=== PATIENT | male | born 1975 | race African-American/Black ===

== ENCOUNTER 2018-01-04 16:19 | Inpatient (IN) | payer OTHER ==
[2018-01-04 17:58] VITALS: BMI 25.1
--- NOTE | 2018-01-04 21:07 | HP ---
COWS - Scale Resting Pulse: 0= [place] 80 or Below Sweatin= Chills/Flushing Restless Observation: 1= Difficult to Sit Still Pupil Size: 1= Pupils >than Normal Bone or Joint Aches: 1= Mild Discomfort Runny Nose/ Eye Tearin= Runny Nose/Eyes GI Upset > 30mins: 2= Nausea/Diarrhea Tremor Observation: 2= Slight Tremor Visible Yawning Observation: 1= 1-2x During Session Anxiety or Irritability: 2=Irritable/Anxious Goose Flesh Skin: 0=Smooth Skin COWS Score: 13 CIWA Score - CIWA Score Nausea/Vomitin Muscle Tremors: 2 Anxiety: 3 Agitation: 2 Paroxysmal Sweats: 2 Orientation: 0-Oriented Tacttile Disturbances: 1-Very Mild Itch/Numbness Auditory Disturbances: 1-Very Mild Visual Disturbances: 1-Very Mild Sensitivity Headache: 1-Very Mild CIWA-Ar Total Score: 15 Admission ROS BHS - HPI Chief Complaint: " I don't feel well" alcohol and opioid withdrawal sx Allergies/Adverse Reactions: Allergies Allergy/AdvReac Type Severity Reaction Status Date / Time No Known Allergies Allergy Verified 01/04/18 20:20 History of Present Illness: 42 yo male with hx of heroin ( nasal), alcohol and nicotine dependence is here seeking detox. Last detox [facility] 11/30/15 -12/05/15. Longest period of sobriety 2 years, reports relapsed nine months. PMHX: GERD, depression. Denies suicidal / homicidal ideation. Denies hx of overdose, reports hx of blackouts with last episode three months ago. Reports no legal troubles at this time. Exam Limitations: No Limitations - Ebola screening Have you traveled outside of the country in the last 21 days: No (N) Have you had contact with anyone from an Ebola affected area: No Have you been sick,other than usual withdrawal symptoms: No Do you have a fever: No - Review of Systems Constitutional: Chills, Loss of Appetite, Changes in sleep, Weakness (no enegery ), Unintentional Wgt. Loss (40 lbs in the past three months) EENT: reports: Other (runny nose) Respiratory: reports: Other (SOB when anxious) GI: reports: Diarrhea, Nausea, Poor Appetite, Poor Fluid Intake, Abdominal cramping : reports: No Symptoms Reported Musculoskeletal: reports: Back Pain, Joint Pain Integumentary: reports: No Symptoms Reported Neuro: reports: Tingling (right arm), Weakness Endocrine: reports: Increased Thirst Hematology: reports: No Symptoms Reported, Bleeding Diathesis Psychiatric: reports: Orientated x3, Anxious Other Systems: Reviewed and Negative Patient History - Patient Medical History Hx Anemia: No Hx Asthma: No Hx Chronic Obstructive Pulmonary Disease (COPD): No Hx Cancer: No Hx Cardiac Disorders: No Hx Congestive Heart Failure: No Hx Hypertension: No Hx Hypercholesterolemia: No Hx Pacemaker: No HX Cerebrovascular Accident: No Hx Seizures: No Hx Dementia: No Hx Diabetes: No Hx Gastrointestinal Disorders: Yes (GERD) Hx Liver Disease: No Hx Genitourinary Disorders: No Hx Sexually Transmitted Disorders: No Hx Renal Disease (ESRD): No Hx Thyroid Disease: No Hx Human Immunodeficiency Virus (HIV): No (2015 negative) Hx Hepatitis C: No (2016 negative) Hx Depression: Yes (no med) Hx Suicide Attempt: No Hx Bipolar Disorder: No Hx Schizophrenia: No - Patient Surgical History Past Surgical History: No Hx Neurologic Surgery: No Hx Cataract Extraction: No Hx Cardiac Surgery: No Hx Lung Surgery: No Hx Breast Surgery: No Hx Breast Biopsy: No Hx Abdominal Surgery: No Hx Appendectomy: No Hx Cholecystectomy: No Hx Genitourinary Surgery: No Hx Section: No Hx Orthopedic Surgery: No Anesthesia Reaction: No - PPD History Previous Implant?: Yes Documented Results: Negative w/proof Date: 07/19/15 Results: 0 mm PPD to be Administered?: Yes - Smoking Cessation Smoking history: Current every day smoker Have you smoked in the past 12 months: Yes Aproximately how many cigarettes per day: 8 Hx Chewing Tobacco Use: No Initiated information on smoking cessation: Yes 'Breaking Loose' booklet given: 01/04/18 - Substance & Tx. History Hx Alcohol Use: Yes Hx Substance Use: Yes Substance Use Type: Alcohol, Heroin Hx Substance Use Treatment: Yes ([facility] 2015) - Substances Abused Alcohol Route: Oral Frequency: Daily Amount used: beer- 16 x (24oz) Age of first use: 12 Date of Last Use: 01/04/18 Heroin Route: Inhalation Frequency: Daily Amount used: 10 bags Age of first use: 36 Date of Last Use: 01/03/18 Family Disease History - Family Disease History Family Disease History: Other: Sister (hx cocaine and currently clean ) Admission Physical Exam [facility] - Vital Signs Vital Signs: Vital Signs - 24 hr 01/04/18 17:56 Temperature 97 F L Pulse Rate 68 Respiratory 18 Rate Blood Pressure 140/80 - Physical General Appearance: Yes: Disheveled, Mild Distress, Anxious HEENTM: Yes: EOMI, Hearing grossly Normal, Normal ENT Inspection, Normocephalic , Normal Voice, SARAHY, Pharynx Normal, Tm's normal Respiratory: Yes: Chest Non-Tender, Lungs Clear, Normal Breath Sounds, No Respiratory Distress, No Accessory Muscle Use Neck: Yes: Within Normal Limits Breast: Yes: Breast Exam Deferred Cardiology: Yes: Regular Rhythm, Regular Rate Abdominal: Yes: Normal Bowel Sounds, Non Tender, Flat, Soft Genitourinary: Yes: Within Normal Limits Back: Yes: Normal Inspection Musculoskeletal: Yes: full range of Motion, Gait Steady, Pelvis Stable Extremities: Yes: Normal Capillary Refill, Normal Inspection, Normal Range of Motion, Non-Tender Neurological: Yes: reliability manager II-XII NML intact, Fully Oriented, Alert, Motor Strength 5/5, Depressed Affect Integumentary: Yes: Normal Color, Warm, Clammy Lymphatic: Yes: Within Normal Limits - Diagnostic (1) Weight loss Current Visit: Yes Status: Acute (2) Alcohol dependence with uncomplicated withdrawal Current Visit: Yes Status: Chronic (3) GERD without esophagitis Current Visit: Yes Status: Chronic (4) Nicotine dependence Current Visit: Yes Status: Chronic Qualifiers: Nicotine product type: cigarettes Substance use status: uncomplicated Qualified Code(s): F17.210 - Nicotine dependence, cigarettes, uncomplicated (5) Opioid dependence with withdrawal Current Visit: Yes Status: Chronic Cleared for Admission [facility] - Detox or Rehab [facility] Level of Care: Medically Managed Detox Regimen/Protocol: Methadone/Librium [facility] Breath Alcohol Content Breath Alcohol Content: 0.048 Urine Drug Screen - Results Drug Screen Negative: No Urine Drug Screen Results: OPI-Opiates, FEN-Fentanyl
[2018-01-04] MEDS ORDERED: MAGNESIUM HYDROX 2400MG/30ML ORAL SUSPENSION 30 ML CUP PO PRN (21:14)
[2018-01-04] MEDS ORDERED: MENTHOL/PHENOL 1 EACH UD MM PRN (21:14)
[2018-01-04] MEDS ORDERED: NICOTINE POLACRILEX 2 MG GUM BUC PRN (21:14)
[2018-01-04] MEDS ORDERED: P-EPHED 60MG/TRIPROLIDI 2.5MG TABLET PO PRN (21:14)
[2018-01-04] MEDS ORDERED: IBUPROFEN 400 MG TABLET (FP) PO PRN (21:14)
[2018-01-04] MEDS ORDERED: MAGNESIUM CITRATE 300 ML BOTTLE PO PRN (21:14)
[2018-01-04] MEDS ORDERED: guaiFENesin/D-METHORPHAN HB 10 ML UNIT-DOSE CUPS PO PRN (21:14)
[2018-01-04] MEDS ORDERED: ACETAMINOPHEN 325 MG TABLET (FP) PO PRN (21:14)
[2018-01-04] MEDS ORDERED: MAG HYDROX/AL HYDROX/SIMETH 30 ML UNIT-DOSE CUP PO PRN (21:14)
[2018-01-04] MEDS ORDERED: LOPERAMIDE HCL 2 MG CAPSULE PO PRN (21:14)
[2018-01-04] MEDS ORDERED: METHADONE HCL 10 MG TABLET (FOR DETOX USE ONLY) PO ONE ×2 (21:14→23:00)
[2018-01-04] MEDS ORDERED: chlordiazePOXIDE HCL 25 MG CAPSULE PO PRN (21:14)
[2018-01-04] MEDS: chlordiazePOXIDE HCL 25 MG CAPSULE PO SCH (22:14)
[2018-01-04] MEDS: THIAMINE HCL 100 MG TABLET (FP) PO SCH (22:15)
[2018-01-05] MEDS: chlordiazePOXIDE HCL 25 MG CAPSULE PO SCH ×4 (05:58→22:21)
[2018-01-05] MEDS ORDERED: METHADONE HCL 10 MG TABLET (FOR DETOX USE ONLY) PO SCH (10:00)
[2018-01-05] MEDS: NICOTINE 14 MG/24 HOURS TOPICAL PATCH TD SCH (10:13)
[2018-01-05 10:14] LABS: HEMATOCRIT 37.5 % (35.4-49); HEMOGLOBIN 12.2 GM/dL (11.7-16.9); MCH 30.8 pg (25.7-33.7); MCHC 32.5 g/dl (32.0-35.9); MEAN CELL VOLUME 94.7 fl (80-96); MEAN PLT VOLUME 9.3 fl (7.5-11.1); PLATELET COUNT 236 K/MM3 (134-434); RBC 3.96 M/mm3 (4.00-5.60); RDW 14.8 % (11.9-15.9); WHITE BLOOD COUNT 9.3 K/mm3 (4.0-10.0)
[2018-01-05] MEDS: PRENATAL VITAMINS W/ FOLIC ACID TABLET (FP) PO SCH (10:14)
[2018-01-05 10:31] LABS: ALBUMIN 3.3 g/dl (3.4-5.0); ALK PHOS 63 U/L (45-117); ANION GAP 9 MMOL/L (8-16); BILIRUBIN,TOTAL 0.2 mg/dL (0.2-1); BLOOD UREA NITROGEN 9 mg/dL (7-18); CALCIUM 8.8 mg/dL (8.5-10.1); CHLORIDE 110 mmol/L (98-107); CO2 28 mmol/L (21-32); CREATININE 0.9 mg/dL (0.55-1.3); GLUCOSE,RANDOM 68 mg/dL (74-106); POTASSIUM 4.3 mmol/L (3.5-5.1); SGOT/AST 7 U/L (15-37); SGPT/ALT 20 U/L (13-61); SODIUM 147 mmol/L (136-145); TOT PROT 6.2 g/dl (6.4-8.2)
--- NOTE | 2018-01-05 12:16 | PN ---
[facility] CIWA - CIWA Score Nausea/Vomitin-Mild Nausea/No Vomiting Muscle Tremors: 3 Anxiety: 2 Agitation: 2 Paroxysmal Sweats: 1-Minimal Palms Moist Orientation: 1-Uncertain about Date Tacttile Disturbances: 1-Very Mild Itch/Numbness Auditory Disturbances: 0-None Visual Disturbances: 0-None Headache: 1-Very Mild CIWA-Ar Total Score: 12 BHS COWS - Scale Resting Pulse: 0= ID 80 or Below Sweatin= Chills/Flushing Restless Observation: 1= Difficult to Sit Still Pupil Size: 0= Normal to Room Light Bone or Joint Aches: 1= Mild Discomfort Runny Nose/ Eye Tearin= Nasal Congestion GI Upset > 30mins: 2= Nausea/Diarrhea Tremor Observation of Outstretched Hands: 1= Tremor [place], Not Seen Yawning Observation: 1= 1-2x During Session Anxiety or Irritability: 2=Irritable/Anxious Goose Flesh Skin: 0=Smooth Skin COWS Score: 10 S Progress Note (SOAP) Subjective: muscle cramp joints pain sweat tremor restlessness Objective: 01/05/18 12:17 Vital Signs Temperature 98.6 F 01/05/18 08:52 Pulse Rate 68 01/05/18 08:52 Respiratory Rate 18 01/05/18 08:52 Blood Pressure 106/54 L 01/05/18 08:52 O2 Sat by Pulse Oximetry (%) Laboratory Last Values WBC 9.3 K/mm3 (4.0-10.0) 01/05/18 07:00 RBC 3.96 M/mm3 (4.00-5.60) L 01/05/18 07:00 Hgb 12.2 GM/dL (11.7-16.9) 01/05/18 07:00 Hct 37.5 % (35.4-49) 01/05/18 07:00 MCV 94.7 fl (80-96) 01/05/18 07:00 MCH 30.8 pg (25.7-33.7) 01/05/18 07:00 MCHC 32.5 g/dl (32.0-35.9) 01/05/18 07:00 RDW 14.8 % (11.9-15.9) 01/05/18 07:00 Plt Count 236 K/MM3 (134-434) 01/05/18 07:00 MPV 9.3 fl (7.5-11.1) 01/05/18 07:00 Sodium 147 mmol/L (136-145) H 01/05/18 07:00 Potassium 4.3 mmol/L (3.5-5.1) 01/05/18 07:00 Chloride 110 mmol/L (98-107) H 01/05/18 07:00 Carbon Dioxide 28 mmol/L (21-32) 01/05/18 07:00 Anion Gap 9 MMOL/L (8-16) 01/05/18 07:00 BUN 9 mg/dL (7-18) 01/05/18 07:00 Creatinine 0.9 mg/dL (0.55-1.3) 01/05/18 07:00 Creat Clearance w eGFR > 60 (>60) 01/05/18 07:00 Random Glucose 68 mg/dL (74-106) L 01/05/18 07:00 Calcium 8.8 mg/dL (8.5-10.1) 01/05/18 07:00 Total Bilirubin 0.2 mg/dL (0.2-1) 01/05/18 07:00 AST 7 U/L (15-37) L 01/05/18 07:00 ALT 20 U/L (13-61) 01/05/18 07:00 Alkaline Phosphatase 63 U/L (45-117) 01/05/18 07:00 Total Protein 6.2 g/dl (6.4-8.2) L 01/05/18 07:00 Albumin 3.3 g/dl (3.4-5.0) L 01/05/18 07:00 RPR Titer Nonreactive (NONREACTIVE) 01/05/18 07:00 HIV 1&2 Antibody Screen Negative 01/05/18 07:00 HIV P24 Antigen Negative 01/05/18 07:00 lab noted Assessment: 01/05/18 12:18 withdrawal sx Plan: continue deox
--- NOTE | 2018-01-05 12:39 | CONSULT ---
[facility] Psychiatric Consult - Data Date of interview: 01/05/18 Admission source: [facility] Identifying data: Patient is a 42 year old single male, father of three, unemployed (denies financial assistance), and is currently homeless. This is one of multiple admissions for patient. Patient admitted to for alcohol and opiate dependence. Substance Abuse History: Smoking Cessation. Smoking history: Current every day smoker. Have you smoked in the past 12 months: Yes. Aproximately how many cigarettes per day: 8. Hx Chewing Tobacco Use: No. Initiated information on smoking cessation: Yes. 'Breaking Loose' booklet given: 01/04/18. - Substance & Tx. History. Hx Alcohol Use: Yes. Hx Substance Use: Yes. Substance Use Type : Alcohol, Heroin. Hx Substance Use Treatment: Yes ([facility] 2015). - Substances Abused. Alcohol. Route: Oral. Frequency: Daily. Amount used: beer- 16 x ( 24oz). Age of first use: 12. Date of Last Use: 01/04/18. Heroin. Route: Inhalation. Frequency: Daily. Amount used: 10 bags. Age of first use: 36. Date of Last Use: 01/03/18 Psychiatric History: Patient's first psychiatric contact was in his mid 20's after endorsing suicial ideation. He was admitted to [facility] and prescribed paxil. Patient's most recent psychiatric hospitalization was in [facility] after he endorsed feeling depressed and was having suicidal ideation. Patient is also known to hospitals in [place]. Currently, patient does not have an outpatient psychiatrist. Patient denies h/o suicide attempt. Pt. agreeable to the re- introduction of paxil 10mg. Patient reports feeling sad but is motivated to continue treatment and attend rehab. Physical/Sexual Abuse/Trauma History: denies. Mental Status Exam - Mental Status Exam Alert and Oriented to: Time, Place, Person Cognitive Function: Good Patient Appearance: Well Groomed Mood: Sad, Euthymic Affect: Euthymic Patient Behavior: Appropriate, Cooperative Speech Pattern: Clear, Appropriate Voice Loudness: Normal Thought Process: Intact Thought Disorder: Not Present Hallucinations: Denies Suicidal Ideation: Denies Homicidal Ideation: Denies Insight/Judgement: Poor Sleep: Fair Appetite: Fair Muscle strength/Tone: Normal Gait/Station: Normal Psychiatric Findings - Problem List ([place] 1, 2,3) (1) Alcohol dependence with uncomplicated withdrawal Current Visit: Yes Status: Acute (2) Nicotine dependence Current Visit: Yes Status: Chronic Qualifiers: Nicotine product type: cigarettes Substance use status: uncomplicated Qualified Code(s): F17.210 - Nicotine dependence, cigarettes, uncomplicated (3) Opioid dependence with withdrawal Current Visit: Yes Status: Acute (4) Depressive disorder Current Visit: Yes Status: Suspected (5) Substance induced mood disorder Current Visit: Yes Status: Acute - Initial Treatment Plan Initial Treatment Plan: Psychoeducation provided. Detoxificiation in progress. Will order Paxil 10mg daily. Benefits and side effects discussed. Verbal consent given.
--- NOTE | 2018-01-05 13:16 | EKG ---
Test Reason : Blood Pressure : / mmHG Vent. Rate : 059 BPM Atrial Rate : 059 BPM P-R Int : 142 ms QRS Dur : 090 ms QT Int : 410 ms P-R-T Axes : 054 054 025 degrees QTc Int : 405 ms SINUS BRADYCARDIA OTHERWISE NORMAL ECG WHEN COMPARED WITH ECG OF 04-JAN-2018 21:40, NO SIGNIFICANT CHANGE WAS FOUND Confirmed by MD MELODY, ANTIONE ([id number]) on 01/05/2018 1:16:11 PM Referred By: Confirmed By:ANTIONE OLIVER MD
--- NOTE | 2018-01-05 13:17 | EKG ---
Test Reason : Blood Pressure : / mmHG Vent. Rate : 073 BPM Atrial Rate : 073 BPM P-R Int : 154 ms QRS Dur : 090 ms QT Int : 390 ms P-R-T Axes : 044 063 035 degrees QTc Int : 429 ms NORMAL SINUS RHYTHM WITH SINUS ARRHYTHMIA INCREASED R/S RATIO IN V1, CONSIDER EARLY TRANSITION OR POSTERIOR INFARCT ABNORMAL ECG NO PREVIOUS ECGS AVAILABLE Confirmed by MD MELODY, ANTIONE ([id number]) on 01/05/2018 1:16:47 PM Referred By: Confirmed By:ANTIONE OLIVER MD
[2018-01-05] MEDS: THIAMINE HCL 100 MG TABLET (FP) PO SCH (22:21)
[2018-01-06] MEDS: chlordiazePOXIDE HCL 25 MG CAPSULE PO SCH ×3 (05:43→17:08)
[2018-01-06] MEDS: PRENATAL VITAMINS W/ FOLIC ACID TABLET (FP) PO SCH (10:10)
[2018-01-06] MEDS: METHADONE HCL 5 MG TABLET (FOR DETOX USE ONLY) PO SCH (10:10)
[2018-01-06] MEDS: PARoxetine HCL 10 MG TABLET (FP) PO SCH (10:11)
[2018-01-06] MEDS: NICOTINE 14 MG/24 HOURS TOPICAL PATCH TD SCH (10:13)
--- NOTE | 2018-01-06 11:58 | PN ---
[facility] CIWA - CIWA Score Nausea/Vomitin-No Nausea/No Vomiting Muscle Tremors: 2 Anxiety: 1-Mildly Anxious Agitation: 3 Paroxysmal Sweats: 1-Minimal Palms Moist Orientation: 1-Uncertain about Date Tacttile Disturbances: 1-Very Mild Itch/Numbness Auditory Disturbances: 0-None Visual Disturbances: 0-None Headache: 1-Very Mild CIWA-Ar Total Score: 10 BHS COWS - Scale Resting Pulse: 0= [place] 80 or Below Sweatin= Chills/Flushing Restless Observation: 1= Difficult to Sit Still Pupil Size: 0= Normal to Room Light Bone or Joint Aches: 2= Severe Diffuse Aches Runny Nose/ Eye Tearin= Nasal Congestion GI Upset > 30mins: 1= Stomach Cramp Tremor Observation of Outstretched Hands: 1= Tremor [place], Not Seen Yawning Observation: 1= 1-2x During Session Anxiety or Irritability: 1=Feels Anxious/Irritable Goose Flesh Skin: 0=Smooth Skin COWS Score: 9 S Progress Note (SOAP) Subjective: joints pain body aches sweat tremor trouble sleep a night Objective: 01/06/18 11:59 Vital Signs Temperature 97.9 F 01/06/18 10:04 Pulse Rate 62 01/06/18 10:04 Respiratory Rate 18 01/06/18 10:04 Blood Pressure 107/63 01/06/18 10:04 O2 Sat by Pulse Oximetry (%) Laboratory Last Values WBC 9.3 K/mm3 (4.0-10.0) 01/05/18 07:00 RBC 3.96 M/mm3 (4.00-5.60) L 01/05/18 07:00 Hgb 12.2 GM/dL (11.7-16.9) 01/05/18 07:00 Hct 37.5 % (35.4-49) 01/05/18 07:00 MCV 94.7 fl (80-96) 01/05/18 07:00 MCH 30.8 pg (25.7-33.7) 01/05/18 07:00 MCHC 32.5 g/dl (32.0-35.9) 01/05/18 07:00 RDW 14.8 % (11.9-15.9) 01/05/18 07:00 Plt Count 236 K/MM3 (134-434) 01/05/18 07:00 MPV 9.3 fl (7.5-11.1) 01/05/18 07:00 Sodium 147 mmol/L (136-145) H 01/05/18 07:00 Potassium 4.3 mmol/L (3.5-5.1) 01/05/18 07:00 Chloride 110 mmol/L (98-107) H 01/05/18 07:00 Carbon Dioxide 28 mmol/L (21-32) 01/05/18 07:00 Anion Gap 9 MMOL/L (8-16) 01/05/18 07:00 BUN 9 mg/dL (7-18) 01/05/18 07:00 Creatinine 0.9 mg/dL (0.55-1.3) 01/05/18 07:00 Creat Clearance w eGFR > 60 (>60) 01/05/18 07:00 Random Glucose 68 mg/dL (74-106) L 01/05/18 07:00 Calcium 8.8 mg/dL (8.5-10.1) 01/05/18 07:00 Total Bilirubin 0.2 mg/dL (0.2-1) 01/05/18 07:00 AST 7 U/L (15-37) L 01/05/18 07:00 ALT 20 U/L (13-61) 01/05/18 07:00 Alkaline Phosphatase 63 U/L (45-117) 01/05/18 07:00 Total Protein 6.2 g/dl (6.4-8.2) L 01/05/18 07:00 Albumin 3.3 g/dl (3.4-5.0) L 01/05/18 07:00 RPR Titer Nonreactive (NONREACTIVE) 01/05/18 07:00 HIV 1&2 Antibody Screen Negative 01/05/18 07:00 HIV P24 Antigen Negative 01/05/18 07:00 lab noted Assessment: 01/06/18 12:00 withdrawal sx Plan: continue detox
[2018-01-06 21:37] LABS: URINE APPEARANCE CLEAR; URINE BILIRUBIN NEGATIVE (<2.0 mg/dL); URINE COLOR STRAW; URINE GLUCOSE (UA) NEGATIVE (NEGATIVE); URINE KETONE NEGATIVE (NEGATIVE); URINE LEUK ESTERASE NEGATIVE (NEGATIVE); URINE NITRITE NEGATIVE (NEGATIVE); URINE PROTEIN NEGATIVE (NEGATIVE); URINE UROBILINOGEN NEGATIVE mg/dL (0.2-1.0)
[2018-01-06] MEDS: MELATONIN 5 MG TABLETS PO PRN (23:28)
[2018-01-06] MEDS: THIAMINE HCL 100 MG TABLET (FP) PO SCH (23:28)
[2018-01-06] MEDS: chlordiazePOXIDE 5 MG CAPSULE PO SCH (23:28)
[2018-01-07] MEDS: chlordiazePOXIDE 5 MG CAPSULE PO SCH ×3 (06:34→18:13)
--- NOTE | 2018-01-07 10:20 | PN ---
BHS Progress Note (SOAP) Subjective: gi distress tremor sweat restlessness low energy Objective: 01/07/18 10:19 Vital Signs Temperature 97.7 F 01/07/18 09:26 Pulse Rate 64 01/07/18 09:26 Respiratory Rate 17 01/07/18 09:26 Blood Pressure 99/58 L 01/07/18 09:26 O2 Sat by Pulse Oximetry (%) Laboratory Last Values WBC 9.3 K/mm3 (4.0-10.0) 01/05/18 07:00 RBC 3.96 M/mm3 (4.00-5.60) L 01/05/18 07:00 Hgb 12.2 GM/dL (11.7-16.9) 01/05/18 07:00 Hct 37.5 % (35.4-49) 01/05/18 07:00 MCV 94.7 fl (80-96) 01/05/18 07:00 MCH 30.8 pg (25.7-33.7) 01/05/18 07:00 MCHC 32.5 g/dl (32.0-35.9) 01/05/18 07:00 RDW 14.8 % (11.9-15.9) 01/05/18 07:00 Plt Count 236 K/MM3 (134-434) 01/05/18 07:00 MPV 9.3 fl (7.5-11.1) 01/05/18 07:00 Sodium 147 mmol/L (136-145) H 01/05/18 07:00 Potassium 4.3 mmol/L (3.5-5.1) 01/05/18 07:00 Chloride 110 mmol/L (98-107) H 01/05/18 07:00 Carbon Dioxide 28 mmol/L (21-32) 01/05/18 07:00 Anion Gap 9 MMOL/L (8-16) 01/05/18 07:00 BUN 9 mg/dL (7-18) 01/05/18 07:00 Creatinine 0.9 mg/dL (0.55-1.3) 01/05/18 07:00 Creat Clearance w eGFR > 60 (>60) 01/05/18 07:00 Random Glucose 68 mg/dL (74-106) L 01/05/18 07:00 Calcium 8.8 mg/dL (8.5-10.1) 01/05/18 07:00 Total Bilirubin 0.2 mg/dL (0.2-1) 01/05/18 07:00 AST 7 U/L (15-37) L 01/05/18 07:00 ALT 20 U/L (13-61) 01/05/18 07:00 Alkaline Phosphatase 63 U/L (45-117) 01/05/18 07:00 Total Protein 6.2 g/dl (6.4-8.2) L 01/05/18 07:00 Albumin 3.3 g/dl (3.4-5.0) L 01/05/18 07:00 Urine Color Straw 01/06/18 17:20 Urine Appearance Clear 01/06/18 17:20 Urine pH 6.0 (5.0-8.0) 01/06/18 17:20 Ur Specific [place] 1.011 (1.010-1.035) 01/06/18 17:20 Urine Protein Negative (NEGATIVE) 01/06/18 17:20 Urine Glucose (UA) Negative (NEGATIVE) 01/06/18 17:20 Urine Ketones Negative (NEGATIVE) 01/06/18 17:20 Urine Blood Negative (NEGATIVE) 01/06/18 17:20 Urine Nitrite Negative (NEGATIVE) 01/06/18 17:20 Urine Bilirubin Negative (<2.0 mg/dL) 01/06/18 17:20 Urine Urobilinogen Negative mg/dL (0.2-1.0) 01/06/18 17:20 Ur Leukocyte Esterase Negative (NEGATIVE) 01/06/18 17:20 RPR Titer Nonreactive (NONREACTIVE) 01/05/18 07:00 HIV 1&2 Antibody Screen Negative 01/05/18 07:00 HIV P24 Antigen Negative 01/05/18 07:00 lab noted Assessment: 01/07/18 10:19 withdrawal sx Plan: continue detox
[2018-01-07] MEDS: METHADONE HCL 5 MG TABLET (FOR DETOX USE ONLY) PO SCH (10:49)
[2018-01-07] MEDS: NICOTINE 14 MG/24 HOURS TOPICAL PATCH TD SCH (10:49)
[2018-01-07] MEDS: PARoxetine HCL 10 MG TABLET (FP) PO SCH (10:49)
[2018-01-07] MEDS: PRENATAL VITAMINS W/ FOLIC ACID TABLET (FP) PO SCH (10:49)
[2018-01-07] MEDS: THIAMINE HCL 100 MG TABLET (FP) PO SCH (22:19)
[2018-01-07] MEDS: chlordiazePOXIDE HCL 10 MG CAPSULE PO SCH (22:19)
[2018-01-07] MEDS: MELATONIN 5 MG TABLETS PO PRN (22:20)
[2018-01-08] MEDS: chlordiazePOXIDE HCL 10 MG CAPSULE PO SCH ×3 (06:35→18:41)
--- NOTE | 2018-01-08 08:52 | DS ---
[facility] Detox Discharge Summary Admission Date: 01/04/18 Discharge Date: 01/08/18 - History Present History: Alcohol Dependence, Opioid Dependence - Physical Exam Results Vital Signs: Vital Signs Temperature 97.7 F 01/08/18 08:06 Pulse Rate 70 01/08/18 08:06 Respiratory Rate 18 01/08/18 08:06 Blood Pressure 105/66 01/08/18 08:06 O2 Sat by Pulse Oximetry (%) - Treatment Hospital Course: Detox Protocol Followed, Detoxed Safely, Responded well, Discharged Condition Good, Rehab Referral Accepted - Medication Discharge Medications: Ambulatory Orders Paroxetine HCl [Paxil -] 20 mg PO DAILY #30 tablet 07/18/15 - Diagnosis (1) Alcohol dependence with uncomplicated withdrawal Current Visit: Yes Status: Chronic (2) Opioid dependence with withdrawal Current Visit: Yes Status: Chronic (3) Substance induced mood disorder Current Visit: Yes Status: Acute (4) Weight loss Current Visit: Yes Status: Acute (5) GERD without esophagitis Current Visit: Yes Status: Chronic (6) Nicotine dependence Current Visit: Yes Status: Chronic Qualifiers: Nicotine product type: cigarettes Substance use status: uncomplicated Qualified Code(s): F17.210 - Nicotine dependence, cigarettes, uncomplicated (7) Depressive disorder Current Visit: Yes Status: Suspected (8) Drug-induced mood disorder Current Visit: No Status: Acute (9) Anxiety and depression Current Visit: No Status: Chronic (10) Contact dermatitis Current Visit: No Status: Chronic Qualifiers: Contact dermatitis trigger: metal (11) Depressed affect Current Visit: No Status: Chronic - AMA Did Patient Leave Against Medical Advice: No
--- NOTE | 2018-01-08 09:53 | PN ---
BHS Progress Note Note: pt is being d/c tomorrow.
[2018-01-08] MEDS ORDERED: METHADONE HCL 10 MG TABLET (FOR DETOX USE ONLY) PO SCH (10:00)
[2018-01-08] MEDS: PRENATAL VITAMINS W/ FOLIC ACID TABLET (FP) PO SCH (10:07)
[2018-01-08] MEDS: NICOTINE 14 MG/24 HOURS TOPICAL PATCH TD SCH (10:07)
[2018-01-08] MEDS: PARoxetine HCL 10 MG TABLET (FP) PO SCH (10:07)
[2018-01-08] MEDS: THIAMINE HCL 100 MG TABLET (FP) PO SCH (22:12)
[2018-01-08] MEDS: MELATONIN 5 MG TABLETS PO PRN (22:12)
[2018-01-09] MEDS ORDERED: METHADONE HCL 5 MG TABLET (FOR DETOX USE ONLY) PO SCH (06:00)
[2018-01-09 09:37] VITALS: BP 128/69; PULSE 66; TEMP 98.4
[2018-01-09] MEDS: PARoxetine HCL 10 MG TABLET (FP) PO SCH (10:32)
[2018-01-09] MEDS: NICOTINE 14 MG/24 HOURS TOPICAL PATCH TD SCH (10:32)
[2018-01-09] MEDS: PRENATAL VITAMINS W/ FOLIC ACID TABLET (FP) PO SCH (10:32)
[2018-01-09] MEDS ORDERED: P-EPHED 60MG/TRIPROLIDI 2.5MG TABLET PO PRN (14:24)
[2018-01-09] MEDS ORDERED: MAG HYDROX/AL HYDROX/SIMETH 30 ML UNIT-DOSE CUP PO PRN (14:24)
[2018-01-09] MEDS ORDERED: LOPERAMIDE HCL 2 MG CAPSULE PO PRN (14:24)
[2018-01-09] MEDS ORDERED: guaiFENesin/D-METHORPHAN HB 10 ML UNIT-DOSE CUPS PO PRN (14:24)
[2018-01-09] MEDS ORDERED: IBUPROFEN 400 MG TABLET (FP) PO PRN (14:24)
[2018-01-09] MEDS ORDERED: MAGNESIUM CITRATE 300 ML BOTTLE PO PRN (14:24)
[2018-01-09] MEDS ORDERED: MENTHOL/PHENOL 1 EACH UD MM PRN (14:24)
[2018-01-09] MEDS ORDERED: MAGNESIUM HYDROX 2400MG/30ML ORAL SUSPENSION 30 ML CUP PO PRN (14:24)
[2018-01-09] MEDS ORDERED: ACETAMINOPHEN 325 MG TABLET (FP) PO PRN (14:24)
--- NOTE | 2018-01-09 14:24 | HP ---
COWS - Scale Resting Pulse: 0= NE 80 or Below Sweatin= Chills/Flushing Restless Observation: 1= Difficult to Sit Still Pupil Size: 1= Pupils >than Normal Bone or Joint Aches: 1= Mild Discomfort Runny Nose/ Eye Tearin= Runny Nose/Eyes GI Upset > 30mins: 2= Nausea/Diarrhea Tremor Observation: 2= Slight Tremor Visible Yawning Observation: 1= 1-2x During Session Anxiety or Irritability: 2=Irritable/Anxious Goose Flesh Skin: 0=Smooth Skin COWS Score: 13 CIWA Score - CIWA Score Nausea/Vomitin-No Nausea/No Vomiting Muscle Tremors: 2 Anxiety: 1-Mildly Anxious Agitation: 3 Paroxysmal Sweats: 1-Minimal Palms Moist Orientation: 1-Uncertain about Date Tacttile Disturbances: 1-Very Mild Itch/Numbness Auditory Disturbances: 0-None Visual Disturbances: 0-None Headache: 1-Very Mild CIWA-Ar Total Score: 10 Admission ROS S - HPI Allergies/Adverse Reactions: Allergies Allergy/AdvReac Type Severity Reaction Status Date / Time No Known Allergies Allergy Verified 01/09/18 13:46 - Ebola screening Have you traveled outside of the country in the last 21 days: No (N) Have you had contact with anyone from an Ebola affected area: No Have you been sick,other than usual withdrawal symptoms: No Do you have a fever: No Patient History - Patient Medical History Hx Anemia: No Hx Asthma: No Hx Chronic Obstructive Pulmonary Disease (COPD): No Hx Cancer: No Hx Cardiac Disorders: No Hx Congestive Heart Failure: No Hx Hypertension: No Hx Hypercholesterolemia: No Hx Pacemaker: No HX Cerebrovascular Accident: No Hx Seizures: No Hx Dementia: No Hx Diabetes: No Hx Gastrointestinal Disorders: Yes (GERD) Hx Liver Disease: No Hx Genitourinary Disorders: No Hx Sexually Transmitted Disorders: No Hx Renal Disease (ESRD): No Hx Thyroid Disease: No Hx Human Immunodeficiency Virus (HIV): No (2015 negative) Hx Hepatitis C: No (2016 negative) Hx Depression: Yes (no med) Hx Suicide Attempt: No Hx Bipolar Disorder: No Hx Schizophrenia: No - Patient Surgical History Past Surgical History: No Hx Neurologic Surgery: No Hx Cataract Extraction: No Hx Cardiac Surgery: No Hx Lung Surgery: No Hx Breast Surgery: No Hx Breast Biopsy: No Hx Abdominal Surgery: No Hx Appendectomy: No Hx Cholecystectomy: No Hx Genitourinary Surgery: No Hx Section: No Hx Orthopedic Surgery: No Anesthesia Reaction: No - PPD History Previous Implant?: Yes Documented Results: Negative w/proof Date: 01/06/18 Results: 0 mm - Smoking Cessation Smoking history: Current every day smoker Have you smoked in the past 12 months: Yes Aproximately how many cigarettes per day: 8 Hx Chewing Tobacco Use: No Initiated information on smoking cessation: Yes - Substances Abused Alcohol Route: Oral Frequency: Daily Amount used: beer- 16 x (24oz) Age of first use: 12 Date of Last Use: 01/04/18 Heroin Route: Inhalation Frequency: Daily Amount used: 10 bags Age of first use: 36 Date of Last Use: 01/03/18 Family Disease History - Family Disease History Family Disease History: Other: Sister (hx cocaine and currently clean ) Admission Physical Exam BHS - Vital Signs Vital Signs: Vital Signs - 24 hr 01/08/18 01/08/18 01/09/18 18:30 22:30 00:30 Temperature 98.2 F 98.4 F Pulse Rate 73 63 Respiratory 18 18 18 Rate Blood Pressure 141/76 103/52 L 01/09/18 01/09/18 01/09/18 03:30 06:00 09:36 Temperature 98.1 F 98.4 F Pulse Rate 57 L 66 Respiratory 18 18 18 Rate Blood Pressure 106/53 L 128/69 BHS Breath Alcohol Content Breath Alcohol Content: 0.048 Urine Drug Screen - Results Drug Screen Negative: No Urine Drug Screen Results: OPI-Opiates, FEN-Fentanyl Inpatient Rehab Admission - Initial Determination Are CD services needed?: Yes Free of communicable disease: Yes Not in need of hospitalization: No - Rehab Admission Criteria Previous failed treatment: Yes Poor recovery environment: Yes Comorbidities: Yes Lacks judgement: Yes Patient is meeting Inpatient Rehab admission criteria:: Yes (completed detox on 6N)
[2018-01-09] MEDS ORDERED: MELATONIN 5 MG TABLETS PO PRN (22:00)
[2018-01-09] MEDS ORDERED: THIAMINE HCL 100 MG TABLET (FP) PO SCH (22:00)
[2018-01-10] MEDS ORDERED: NICOTINE 14 MG/24 HOURS TOPICAL PATCH TD SCH (10:00)
[2018-01-10] MEDS ORDERED: PRENATAL VITAMINS W/ FOLIC ACID TABLET (FP) PO SCH (10:00)
== END 2018-01-09 11:25 | disposition other institution (70) | DRG 773 ==
LOC: YASAS 16:19 → Y6N 21:35
PROC: HZ2ZZZZ Detoxification Services for Substance Abuse Treatment (ICD-10-PCS; principal; 2018-01-04)
DX: F11.23 Opioid dependence with withdrawal (principal); F10.230 Alcohol dependence with withdrawal, uncomplicated; F17.210 Nicotine dependence, cigarettes, uncomplicated; F19.24 Other psychoactive substance dependence with psychoactive substance-induced mood disorder; F41.8 Other specified anxiety disorders; F32.9 Major depressive disorder, single episode, unspecified; K21.9 Gastro-esophageal reflux disease without esophagitis; L23.0 Allergic contact dermatitis due to metals; R45.89 Other symptoms and signs involving emotional state; R63.4 Abnormal weight loss; Z68.25 Body mass index [BMI] 25.0-25.9, adult
CPT/HCPCS: 36415; 80053; 81003; 85027; 86593; 87389; 93005; 93010

== ENCOUNTER 2018-01-09 11:52 | Inpatient (IN) | payer OTHER ==
--- NOTE | 2018-01-09 12:16 | PN ---
S Progress Note (SOAP) Subjective: No new complaints Objective: 01/09/18 12:15 A & O x 3 In no acute distress Assessment: 01/09/18 12:16 Completed detox Plan: for d/c
--- NOTE | 2018-01-09 12:20 | DS ---
[facility] Detox Discharge Summary Admission Date: 01/09/18 Discharge Date: 01/09/18 - History Additional Comments: Pt completed detox will complete aftercare at [facility] Rehab - Physical Exam Results Pertinent Admission Physical Exam Findings: withdrawal sx - Treatment Hospital Course: Detox Protocol Followed, Detoxed Safely, Responded well, Discharged Condition Good, Rehab Referral Accepted Patient has Accepted a Rehab Referral to: [facility] Rehab - Medication Discharge Medications: Ambulatory Orders Paroxetine HCl [Paxil -] 20 mg PO DAILY #30 tablet 07/18/15 - Diagnosis (1) Opioid dependence with withdrawal Current Visit: Yes Status: Acute (2) Alcohol dependence with uncomplicated withdrawal Current Visit: Yes Status: Acute (3) Nicotine dependence Current Visit: Yes Status: Chronic Qualifiers: (4) Drug-induced mood disorder Current Visit: Yes Status: Chronic (5) Anxiety and depression Current Visit: Yes Status: Chronic (6) Contact dermatitis Current Visit: Yes Status: Chronic (7) Depressed affect Current Visit: Yes Status: Chronic (8) GERD without esophagitis Current Visit: Yes Status: Chronic (9) Depressive disorder Current Visit: Yes Status: Suspected - AMA Did Patient Leave Against Medical Advice: No
[2018-01-09 14:44] VITALS: BMI 27.0
--- NOTE | 2018-01-09 15:03 | PN ---
[facility] Progress Note Note: Psychiatrist director of personnel note: Called by nursing staff to order medication for newly admitted patient from detox. Medication reconciliation done. Paxil 10 mg po daily ordered for patient
[2018-01-09] MEDS ORDERED: MAG HYDROX/AL HYDROX/SIMETH 30 ML UNIT-DOSE CUP PO PRN (18:07)
[2018-01-09] MEDS ORDERED: MAGNESIUM HYDROX 2400MG/30ML ORAL SUSPENSION 30 ML CUP PO PRN (18:07)
[2018-01-09] MEDS ORDERED: guaiFENesin/D-METHORPHAN HB 10 ML UNIT-DOSE CUPS PO PRN (18:07)
[2018-01-09] MEDS ORDERED: P-EPHED 60MG/TRIPROLIDI 2.5MG TABLET PO PRN (18:07)
[2018-01-09] MEDS ORDERED: MENTHOL/PHENOL 1 EACH UD MM PRN (18:07)
[2018-01-09] MEDS ORDERED: ACETAMINOPHEN 325 MG TABLET (FP) PO PRN (18:07)
[2018-01-09] MEDS ORDERED: LOPERAMIDE HCL 2 MG CAPSULE PO PRN (18:07)
[2018-01-09] MEDS ORDERED: MAGNESIUM CITRATE 300 ML BOTTLE PO PRN (18:07)
[2018-01-09] MEDS: THIAMINE HCL 100 MG TABLET (FP) PO SCH (21:02)
[2018-01-09] MEDS: MELATONIN 5 MG TABLETS PO PRN (22:18)
[2018-01-10] MEDS: PARoxetine HCL 10 MG TABLET (FP) PO SCH (09:44)
[2018-01-10] MEDS: NICOTINE 14 MG/24 HOURS TOPICAL PATCH TD SCH (09:44)
[2018-01-10] MEDS: PRENATAL VITAMINS W/ FOLIC ACID TABLET (FP) PO SCH (09:44)
[2018-01-10] MEDS ORDERED: FLU VACCINE QUAD 60 MCG/0.5 ML (MDV 18-19) IM ONE (12:00)
[2018-01-10] MEDS: MELATONIN 5 MG TABLETS PO PRN (21:20)
[2018-01-10] MEDS: THIAMINE HCL 100 MG TABLET (FP) PO SCH (21:20)
--- NOTE | 2018-01-11 06:41 | HP ---
Psychiatrist Admission - Data Date of interview: 01/11/18 Admission source: [facility] Identifying data: This is the first [facility] admission for this 42 years old single Black male, father of ashly, unemployed with no source of income, living with family Medical History: Unremarkable except for GERD. Smokes 8 cigarettes daily Psychiatric History: Reports history of multiple psychatric hospitalizations for depression and suicidal ideations. His first psychiatric admission was in the mid 's at [facility] in [place], [place]. He was started on Paxil then. Subsequent admissions were at [facility] in [place] and [facility] in [place], [place] for about 3 times. Most recent admission was 2-3 years ago to [facility] in [place], [place]. Reports chronic non adherence to aftercare and medication. He has not taken medication(Paxil) for a year. He saw SOWMYA Parks on 01/05/18 while in detox and he was restarted on Paxil 10 mg po daily. At present, reports feeling mildly depressed, anxous and sleeping poorly Physical/Sexual Abuse/Trauma History: Denies history of emotional, physical or sexual abuse aswell as DV relationship. No service Additional Comment: Reports history of 3-4 previous arrests including one felony conviction. Denies being on parole/probation Vital Signs: Vital Signs - 24 hr 01/10/18 01/11/18 01/11/18 06:44 00:30 03:30 Temperature 98 F Pulse Rate 61 Respiratory 18 20 20 Rate Blood Pressure 109/71 Allergies/Adverse Reactions: Allergies Allergy/AdvReac Type Severity Reaction Status Date / Time No Known Allergies Allergy Verified 01/09/18 13:46 Date of last physical exam: 01/04/18 Concur with the findings of this exam: Yes - Substance Abuse/Tx History Hx Alcohol Use: Yes Hx Substance Use: Yes Substance Use Type: Alcohol (Started drinking alcohol at age 12, consumes 16x 24oz of beer daily. Last drank on 01/04/18), Heroin (Started using heroin at age 36, consumes 10 bags daily. Last used on 01/03/18) Hx Substance Use Treatment: Yes (6-7 previous inpt detox & 6-7 inpt rehab admissions) Mental Status Exam - Mental Status Exam Alert and Oriented to: Time, Place, Person Cognitive Function: Fair Patient Appearance: Well Groomed Mood: Depressed (mildly), Anxious (mildly), Hopeful Patient Behavior: Cooperative Speech Pattern: Clear Voice Loudness: Normal Thought Process: Intact, Goal Oriented Hallucinations: Denies Suicidal Ideation: Denies Homicidal Ideation: Denies Insight/Judgement: Fair Sleep: Poorly Appetite: Fair Muscle strength/Tone: Normal Gait/Station: Normal Psychiatric Findings - Problem List ([place] 1, 2,3) (1) Alcohol dependence Current Visit: Yes Status: Acute (2) Opioid dependence Current Visit: Yes Status: Acute (3) Nicotine dependence Current Visit: Yes Status: Chronic Qualifiers: (4) MDD (major depressive disorder), recurrent episode, moderate Current Visit: Yes Status: Chronic (5) Substance induced mood disorder Current Visit: Yes Status: Acute (6) Substance-induced sleep disorder Current Visit: Yes Status: Acute (7) GERD without esophagitis Current Visit: Yes Status: Chronic - Initial Treatment Plan Initial Treatment Plan: 1) Continue Paxil 10 mg po daily. 2) Start Belsomra 10 mg po HS prn for insomnia. 3) Monitor progress
[2018-01-11] MEDS: PRENATAL VITAMINS W/ FOLIC ACID TABLET (FP) PO SCH (10:16)
[2018-01-11] MEDS: PARoxetine HCL 10 MG TABLET (FP) PO SCH (10:16)
[2018-01-11] MEDS: NICOTINE 14 MG/24 HOURS TOPICAL PATCH TD SCH (10:17)
[2018-01-11] MEDS: MELATONIN 5 MG TABLETS PO PRN (21:53)
[2018-01-11] MEDS: SUVOREXANT 10 MG TABLET PO PRN (21:53)
[2018-01-11] MEDS: THIAMINE HCL 100 MG TABLET (FP) PO SCH (21:54)
[2018-01-12] MEDS: PARoxetine HCL 10 MG TABLET (FP) PO SCH (09:59)
[2018-01-12] MEDS: PRENATAL VITAMINS W/ FOLIC ACID TABLET (FP) PO SCH (09:59)
[2018-01-12] MEDS: NICOTINE 14 MG/24 HOURS TOPICAL PATCH TD SCH (09:59)
[2018-01-12] MEDS: SUVOREXANT 10 MG TABLET PO PRN (21:28)
[2018-01-12] MEDS: THIAMINE HCL 100 MG TABLET (FP) PO SCH (21:28)
[2018-01-12] MEDS: MELATONIN 5 MG TABLETS PO PRN (21:28)
[2018-01-13] MEDS: NICOTINE 14 MG/24 HOURS TOPICAL PATCH TD SCH (10:24)
[2018-01-13] MEDS: PRENATAL VITAMINS W/ FOLIC ACID TABLET (FP) PO SCH (10:24)
[2018-01-13] MEDS: PARoxetine HCL 10 MG TABLET (FP) PO SCH (10:24)
[2018-01-13] MEDS: IBUPROFEN 400 MG TABLET (FP) PO PRN ×2 (16:08→21:47)
[2018-01-13] MEDS: SUVOREXANT 10 MG TABLET PO PRN (21:02)
[2018-01-13] MEDS: MELATONIN 5 MG TABLETS PO PRN (21:03)
[2018-01-13] MEDS: THIAMINE HCL 100 MG TABLET (FP) PO SCH (21:03)
[2018-01-14] MEDS: IBUPROFEN 400 MG TABLET (FP) PO PRN (05:08)
[2018-01-14] MEDS ORDERED: CYCLOBENZAPRINE HCL 10 MG TABLET (FP) PO ONE (06:51)
--- NOTE | 2018-01-14 08:47 | HP ---
[facility] Rehab Assess/Revision - Admission History Ad[facility] to Rehab [facility] Date of Admission to Rehab: 01/09/18 - Vital signs Vital Signs: Vital Signs Period Temp Pulse Resp BP Sys/Haley Pulse Ox Last 24 Hr 98.1 F 60 16-18 115/67 - Findings Detox History & Physical reviewed: Yes Concur with findings: Yes Inpatient Rehab Admission - Initial Determination Are CD services needed?: Yes Free of communicable disease: Yes Not in need of hospitalization: Yes - Rehab Admission Criteria Patient is meeting Inpatient Rehab admission criteria:: Yes
[2018-01-14] MEDS ORDERED: cloNIDine HCL 0.1 MG TABLET PO PRN (08:48)
--- NOTE | 2018-01-14 09:20 | PN ---
BHS COWS - Scale Resting Pulse: 0= [place] 80 or Below Sweatin= Chills/Flushing Restless Observation: 3= Extraneous Movement Pupil Size: 0= Normal to Room Light Bone or Joint Aches: 4=Acute Joint/Muscle Pain Runny Nose/ Eye Tearin= Nasal Congestion GI Upset > 30mins: 2= Nausea/Diarrhea (diarrhea) Tremor Observation of Outstretched Hands: 2= Slight Tremor Visible Yawning Observation: 2= >3x During Session Anxiety or Irritability: 2=Irritable/Anxious Goose Flesh Skin: 0=Smooth Skin COWS Score: 17 BHS Progress Note (SOAP) Subjective: PT IS A 42 Y/O MALE WHO COMPLETED DETOX ON [address] [place] [address] ON 01/08/18 AND REFERRED TO REHAB AND REQUESTING SUBOXONE STATING "I NEED HELP, I'M TRYING MY BEST HERE BUT FEELING WITHDRAWALS/CRAVINGS. HOWEVER PT REPORTS HE HAS NOT TAKEN SUBOXONE BEFORE. PT REPORTS HIS AFTERCARE WILL BE AT [facility]. PT IS ALERT O X 3. OOB WITH STEADY GAIT. Objective: 01/14/18 09:20 Vital Signs - 24 hr 01/14/18 01/14/18 01/14/18 00:30 03:30 06:52 Temperature 98.1 F Pulse Rate 60 Respiratory 16 16 18 Rate Blood Pressure 115/67 Assessment: 01/14/18 09:20 WITHDRAWALS/CRAVINGS MAT Plan: START SUBOXONE 2 MG/0.5 MG SL NOW RE-EVAL IN 2 HOURS.AFTER FIRST DOSE
[2018-01-14] MEDS: PARoxetine HCL 10 MG TABLET (FP) PO SCH (09:44)
[2018-01-14] MEDS: PRENATAL VITAMINS W/ FOLIC ACID TABLET (FP) PO SCH (09:44)
[2018-01-14] MEDS: NICOTINE 14 MG/24 HOURS TOPICAL PATCH TD SCH (09:45)
[2018-01-14] MEDS ORDERED: BUPRENORPHINE/NALOXONE 2 MG/0.5 MG FILM PACKET SL ONE (10:00)
[2018-01-14] MEDS: CYCLOBENZAPRINE HCL 10 MG TABLET (FP) PO SCH ×2 (14:10→21:36)
[2018-01-14] MEDS: MELATONIN 5 MG TABLETS PO PRN (21:36)
[2018-01-14] MEDS: SUVOREXANT 10 MG TABLET PO PRN (21:36)
[2018-01-14] MEDS: THIAMINE HCL 100 MG TABLET (FP) PO SCH (21:36)
[2018-01-15] MEDS: CYCLOBENZAPRINE HCL 10 MG TABLET (FP) PO SCH ×3 (06:05→21:15)
--- NOTE | 2018-01-15 09:37 | PN ---
BHS COWS - Scale Resting Pulse: 0= [place] 80 or Below Sweatin= Chills/Flushing Restless Observation: 3= Extraneous Movement Pupil Size: 0= Normal to Room Light Bone or Joint Aches: 1= Mild Discomfort Runny Nose/ Eye Tearin= Nasal Congestion GI Upset > 30mins: 1= Stomach Cramp Tremor Observation of Outstretched Hands: 1= Tremor [place], Not Seen Yawning Observation: 0= None Anxiety or Irritability: 1=Feels Anxious/Irritable Goose Flesh Skin: 0=Smooth Skin COWS Score: 9 BHS Progress Note (SOAP) Subjective: PT REPORTS DECREASED WITHDRAWAL SX AND CRAVINGS. REPORTS ABLE TO GO TO [facility] BUT HAS DIMINISHED APPETITE. Objective: 01/15/18 09:34 Vital Signs 01/15/18 01/15/18 03:30 06:42 Temperature 97.9 F Pulse Rate 65 Respiratory 18 18 Rate Blood Pressure 105/66 Assessment: 01/15/18 09:34 MAT Plan: INCREASE SUBOXONE 4MG/0.5 MG SL DAILY PT INSTRUCTED TO REPORT DISCOMFORT AND NEED FOR INCREASED DOSE.
[2018-01-15] MEDS: NICOTINE 14 MG/24 HOURS TOPICAL PATCH TD SCH (09:53)
[2018-01-15] MEDS: PRENATAL VITAMINS W/ FOLIC ACID TABLET (FP) PO SCH (09:53)
[2018-01-15] MEDS: PARoxetine HCL 10 MG TABLET (FP) PO SCH (09:53)
[2018-01-15] MEDS: BUPRENORPHINE/NALOXONE 2 MG/0.5 MG FILM PACKET SL SCH (09:54)
[2018-01-15] MEDS: MELATONIN 5 MG TABLETS PO PRN (21:15)
[2018-01-15] MEDS: THIAMINE HCL 100 MG TABLET (FP) PO SCH (21:15)
[2018-01-15] MEDS: SUVOREXANT 10 MG TABLET PO PRN (21:15)
[2018-01-16] MEDS: CYCLOBENZAPRINE HCL 10 MG TABLET (FP) PO SCH ×3 (06:39→21:29)
[2018-01-16] MEDS: PRENATAL VITAMINS W/ FOLIC ACID TABLET (FP) PO SCH (10:10)
[2018-01-16] MEDS: BUPRENORPHINE/NALOXONE 2 MG/0.5 MG FILM PACKET SL SCH (10:10)
[2018-01-16] MEDS: PARoxetine HCL 10 MG TABLET (FP) PO SCH (10:10)
[2018-01-16] MEDS: NICOTINE 14 MG/24 HOURS TOPICAL PATCH TD SCH (10:11)
[2018-01-16] MEDS: THIAMINE HCL 100 MG TABLET (FP) PO SCH (21:29)
[2018-01-16] MEDS: MELATONIN 5 MG TABLETS PO PRN (21:29)
[2018-01-16] MEDS: SUVOREXANT 10 MG TABLET PO PRN (21:29)
[2018-01-17] MEDS: CYCLOBENZAPRINE HCL 10 MG TABLET (FP) PO SCH ×3 (06:01→21:03)
[2018-01-17] MEDS: NICOTINE 14 MG/24 HOURS TOPICAL PATCH TD SCH (09:37)
[2018-01-17] MEDS: BUPRENORPHINE/NALOXONE 2 MG/0.5 MG FILM PACKET SL SCH (09:37)
[2018-01-17] MEDS: PRENATAL VITAMINS W/ FOLIC ACID TABLET (FP) PO SCH (09:37)
[2018-01-17] MEDS: PARoxetine HCL 10 MG TABLET (FP) PO SCH (09:37)
[2018-01-17] MEDS: SUVOREXANT 10 MG TABLET PO PRN (21:03)
[2018-01-17] MEDS: MELATONIN 5 MG TABLETS PO PRN (21:03)
[2018-01-17] MEDS: THIAMINE HCL 100 MG TABLET (FP) PO SCH (21:03)
[2018-01-18] MEDS: CYCLOBENZAPRINE HCL 10 MG TABLET (FP) PO SCH ×3 (06:32→21:24)
[2018-01-18] MEDS: PARoxetine HCL 10 MG TABLET (FP) PO SCH (10:02)
[2018-01-18] MEDS: PRENATAL VITAMINS W/ FOLIC ACID TABLET (FP) PO SCH (10:02)
[2018-01-18] MEDS: NICOTINE 14 MG/24 HOURS TOPICAL PATCH TD SCH (10:03)
[2018-01-18] MEDS: BUPRENORPHINE/NALOXONE 2 MG/0.5 MG FILM PACKET SL SCH (10:04)
--- NOTE | 2018-01-18 10:30 | PN ---
BHS Progress Note Note: SUBOXONE INCREASED TO 6 MG/1.5 MG SL DAILY TODAY FOR C/O CRAVINGS. ALERT O X 3. NAD. Vital Signs 01/18/18 01/18/18 03:30 06:32 Temperature 97.3 F L Pulse Rate 62 Respiratory 18 20 Rate Blood Pressure 108/67 CONTINUE WITH PT FOLLOW UP.
[2018-01-18] MEDS: THIAMINE HCL 100 MG TABLET (FP) PO SCH (21:24)
[2018-01-18] MEDS: MELATONIN 5 MG TABLETS PO PRN (21:24)
[2018-01-19] MEDS: CYCLOBENZAPRINE HCL 10 MG TABLET (FP) PO SCH ×3 (06:05→21:56)
[2018-01-19] MEDS: PRENATAL VITAMINS W/ FOLIC ACID TABLET (FP) PO SCH (09:40)
[2018-01-19] MEDS: BUPRENORPHINE/NALOXONE 2 MG/0.5 MG FILM PACKET SL SCH (09:40)
[2018-01-19] MEDS: PARoxetine HCL 10 MG TABLET (FP) PO SCH (09:40)
[2018-01-19] MEDS: NICOTINE 14 MG/24 HOURS TOPICAL PATCH TD SCH (09:40)
[2018-01-19] MEDS: THIAMINE HCL 100 MG TABLET (FP) PO SCH (21:56)
[2018-01-20] MEDS: CYCLOBENZAPRINE HCL 10 MG TABLET (FP) PO SCH ×3 (06:14→21:11)
[2018-01-20] MEDS: PARoxetine HCL 10 MG TABLET (FP) PO SCH (09:41)
[2018-01-20] MEDS: BUPRENORPHINE/NALOXONE 2 MG/0.5 MG FILM PACKET SL SCH (09:42)
[2018-01-20] MEDS: PRENATAL VITAMINS W/ FOLIC ACID TABLET (FP) PO SCH (09:42)
[2018-01-20] MEDS: NICOTINE 14 MG/24 HOURS TOPICAL PATCH TD SCH (09:43)
[2018-01-20] MEDS: THIAMINE HCL 100 MG TABLET (FP) PO SCH (21:11)
[2018-01-21] MEDS: CYCLOBENZAPRINE HCL 10 MG TABLET (FP) PO SCH ×3 (06:01→22:26)
[2018-01-21] MEDS: BUPRENORPHINE/NALOXONE 2 MG/0.5 MG FILM PACKET SL SCH (09:36)
[2018-01-21] MEDS: PRENATAL VITAMINS W/ FOLIC ACID TABLET (FP) PO SCH (09:36)
[2018-01-21] MEDS: PARoxetine HCL 10 MG TABLET (FP) PO SCH (09:36)
[2018-01-21] MEDS: NICOTINE 14 MG/24 HOURS TOPICAL PATCH TD SCH (09:36)
--- NOTE | 2018-01-21 12:15 | PN ---
BHS Progress Note Note: PT REQUEST INCREASE TO 8 MG. REPORTS SUBOXONE HELPING. WILL F/U AT [facility] UPON DISCHARGE FROM REHAB. PLAN;SUBOXONE 8 MG SL STARTING 01/22/18.
[2018-01-21] MEDS: THIAMINE HCL 100 MG TABLET (FP) PO SCH (22:26)
[2018-01-22] MEDS: CYCLOBENZAPRINE HCL 10 MG TABLET (FP) PO SCH ×3 (06:08→21:39)
[2018-01-22] MEDS: PARoxetine HCL 10 MG TABLET (FP) PO SCH (10:01)
[2018-01-22] MEDS: BUPRENORPHINE/NALOXONE 8 MG/2 MG FILM PACKET SL SCH (10:01)
[2018-01-22] MEDS: PRENATAL VITAMINS W/ FOLIC ACID TABLET (FP) PO SCH (10:01)
[2018-01-22] MEDS: NICOTINE 14 MG/24 HOURS TOPICAL PATCH TD SCH (10:02)
[2018-01-22] MEDS: THIAMINE HCL 100 MG TABLET (FP) PO SCH (21:39)
[2018-01-23] MEDS: CYCLOBENZAPRINE HCL 10 MG TABLET (FP) PO SCH ×3 (06:16→21:13)
[2018-01-23] MEDS: PRENATAL VITAMINS W/ FOLIC ACID TABLET (FP) PO SCH (09:57)
[2018-01-23] MEDS: PARoxetine HCL 10 MG TABLET (FP) PO SCH (09:57)
[2018-01-23] MEDS: BUPRENORPHINE/NALOXONE 8 MG/2 MG FILM PACKET SL SCH (09:57)
[2018-01-23] MEDS: NICOTINE 14 MG/24 HOURS TOPICAL PATCH TD SCH (09:57)
[2018-01-23] MEDS: THIAMINE HCL 100 MG TABLET (FP) PO SCH (21:13)
[2018-01-24] MEDS: CYCLOBENZAPRINE HCL 10 MG TABLET (FP) PO SCH ×3 (06:46→21:12)
[2018-01-24] MEDS: PRENATAL VITAMINS W/ FOLIC ACID TABLET (FP) PO SCH (09:51)
[2018-01-24] MEDS: NICOTINE 14 MG/24 HOURS TOPICAL PATCH TD SCH (09:52)
[2018-01-24] MEDS: BUPRENORPHINE/NALOXONE 8 MG/2 MG FILM PACKET SL SCH (09:52)
[2018-01-24] MEDS: PARoxetine HCL 10 MG TABLET (FP) PO SCH (09:52)
[2018-01-24] MEDS: THIAMINE HCL 100 MG TABLET (FP) PO SCH (21:12)
[2018-01-25] MEDS: CYCLOBENZAPRINE HCL 10 MG TABLET (FP) PO SCH ×3 (06:17→21:11)
[2018-01-25] MEDS: PRENATAL VITAMINS W/ FOLIC ACID TABLET (FP) PO SCH (10:04)
[2018-01-25] MEDS: PARoxetine HCL 10 MG TABLET (FP) PO SCH (10:04)
[2018-01-25] MEDS: NICOTINE 14 MG/24 HOURS TOPICAL PATCH TD SCH (10:05)
[2018-01-25] MEDS: BUPRENORPHINE/NALOXONE 8 MG/2 MG FILM PACKET SL SCH (10:06)
[2018-01-25] MEDS: THIAMINE HCL 100 MG TABLET (FP) PO SCH (21:11)
[2018-01-25] MEDS: MELATONIN 5 MG TABLETS PO PRN (21:11)
[2018-01-26] MEDS: CYCLOBENZAPRINE HCL 10 MG TABLET (FP) PO SCH ×3 (06:02→21:36)
[2018-01-26] MEDS: PRENATAL VITAMINS W/ FOLIC ACID TABLET (FP) PO SCH (09:54)
[2018-01-26] MEDS: BUPRENORPHINE/NALOXONE 8 MG/2 MG FILM PACKET SL SCH (09:54)
[2018-01-26] MEDS: PARoxetine HCL 10 MG TABLET (FP) PO SCH (09:54)
[2018-01-26] MEDS: NICOTINE 14 MG/24 HOURS TOPICAL PATCH TD SCH (09:54)
[2018-01-26] MEDS: MELATONIN 5 MG TABLETS PO PRN (21:36)
[2018-01-26] MEDS: THIAMINE HCL 100 MG TABLET (FP) PO SCH (21:36)
[2018-01-27] MEDS: CYCLOBENZAPRINE HCL 10 MG TABLET (FP) PO SCH ×3 (06:18→21:12)
[2018-01-27] MEDS: NICOTINE 14 MG/24 HOURS TOPICAL PATCH TD SCH (09:47)
[2018-01-27] MEDS: BUPRENORPHINE/NALOXONE 8 MG/2 MG FILM PACKET SL SCH (09:47)
[2018-01-27] MEDS: PRENATAL VITAMINS W/ FOLIC ACID TABLET (FP) PO SCH (09:47)
[2018-01-27] MEDS: PARoxetine HCL 10 MG TABLET (FP) PO SCH (09:47)
[2018-01-27] MEDS: THIAMINE HCL 100 MG TABLET (FP) PO SCH (21:12)
[2018-01-28] MEDS: CYCLOBENZAPRINE HCL 10 MG TABLET (FP) PO SCH ×3 (06:31→21:06)
[2018-01-28] MEDS: NICOTINE 14 MG/24 HOURS TOPICAL PATCH TD SCH (09:52)
[2018-01-28] MEDS: PARoxetine HCL 10 MG TABLET (FP) PO SCH (09:52)
[2018-01-28] MEDS: PRENATAL VITAMINS W/ FOLIC ACID TABLET (FP) PO SCH (09:52)
[2018-01-28] MEDS: BUPRENORPHINE/NALOXONE 8 MG/2 MG FILM PACKET SL SCH (10:37)
[2018-01-28] MEDS: MELATONIN 5 MG TABLETS PO PRN (21:06)
[2018-01-28] MEDS: THIAMINE HCL 100 MG TABLET (FP) PO SCH (21:06)
[2018-01-29] MEDS: CYCLOBENZAPRINE HCL 10 MG TABLET (FP) PO SCH ×3 (06:05→21:55)
[2018-01-29] MEDS: PARoxetine HCL 10 MG TABLET (FP) PO SCH (10:07)
[2018-01-29] MEDS: PRENATAL VITAMINS W/ FOLIC ACID TABLET (FP) PO SCH (10:07)
[2018-01-29] MEDS: BUPRENORPHINE/NALOXONE 8 MG/2 MG FILM PACKET SL SCH (10:07)
[2018-01-29] MEDS: NICOTINE 14 MG/24 HOURS TOPICAL PATCH TD SCH (10:08)
[2018-01-29] MEDS: THIAMINE HCL 100 MG TABLET (FP) PO SCH (21:55)
[2018-01-29] MEDS: MELATONIN 5 MG TABLETS PO PRN (21:55)
[2018-01-30] MEDS: CYCLOBENZAPRINE HCL 10 MG TABLET (FP) PO SCH ×3 (05:59→21:26)
[2018-01-30] MEDS: BUPRENORPHINE/NALOXONE 8 MG/2 MG FILM PACKET SL SCH (10:07)
[2018-01-30] MEDS: NICOTINE 14 MG/24 HOURS TOPICAL PATCH TD SCH (10:07)
[2018-01-30] MEDS: PARoxetine HCL 10 MG TABLET (FP) PO SCH (10:07)
[2018-01-30] MEDS: PRENATAL VITAMINS W/ FOLIC ACID TABLET (FP) PO SCH (10:07)
[2018-01-30] MEDS: THIAMINE HCL 100 MG TABLET (FP) PO SCH (21:26)
[2018-01-30] MEDS: MELATONIN 5 MG TABLETS PO PRN (21:26)
[2018-01-31] MEDS: CYCLOBENZAPRINE HCL 10 MG TABLET (FP) PO SCH ×3 (05:53→21:48)
[2018-01-31] MEDS: PARoxetine HCL 10 MG TABLET (FP) PO SCH (10:07)
[2018-01-31] MEDS: PRENATAL VITAMINS W/ FOLIC ACID TABLET (FP) PO SCH (10:07)
[2018-01-31] MEDS: BUPRENORPHINE/NALOXONE 8 MG/2 MG FILM PACKET SL SCH (10:07)
[2018-01-31] MEDS: NICOTINE 14 MG/24 HOURS TOPICAL PATCH TD SCH (10:08)
[2018-01-31] MEDS: THIAMINE HCL 100 MG TABLET (FP) PO SCH (21:48)
[2018-01-31] MEDS: MELATONIN 5 MG TABLETS PO PRN (21:48)
[2018-02-01] MEDS: CYCLOBENZAPRINE HCL 10 MG TABLET (FP) PO SCH ×3 (06:09→21:11)
[2018-02-01] MEDS: PRENATAL VITAMINS W/ FOLIC ACID TABLET (FP) PO SCH (09:41)
[2018-02-01] MEDS: PARoxetine HCL 10 MG TABLET (FP) PO SCH (09:41)
[2018-02-01] MEDS: BUPRENORPHINE/NALOXONE 8 MG/2 MG FILM PACKET SL SCH (09:42)
[2018-02-01] MEDS: NICOTINE 14 MG/24 HOURS TOPICAL PATCH TD SCH (10:32)
[2018-02-01] MEDS: MELATONIN 5 MG TABLETS PO PRN (21:11)
[2018-02-01] MEDS: THIAMINE HCL 100 MG TABLET (FP) PO SCH (21:11)
[2018-02-02] MEDS: CYCLOBENZAPRINE HCL 10 MG TABLET (FP) PO SCH ×3 (06:04→21:37)
[2018-02-02] MEDS: BUPRENORPHINE/NALOXONE 8 MG/2 MG FILM PACKET SL SCH (09:46)
[2018-02-02] MEDS: NICOTINE 14 MG/24 HOURS TOPICAL PATCH TD SCH (09:46)
[2018-02-02] MEDS: PRENATAL VITAMINS W/ FOLIC ACID TABLET (FP) PO SCH (09:46)
[2018-02-02] MEDS: PARoxetine HCL 10 MG TABLET (FP) PO SCH (09:46)
[2018-02-02] MEDS ORDERED: COLLOIDAL OATMEAL 1 BAR EACH TP PRN (10:42)
[2018-02-02] MEDS: THIAMINE HCL 100 MG TABLET (FP) PO SCH (21:37)
[2018-02-02] MEDS: MELATONIN 5 MG TABLETS PO PRN (21:37)
[2018-02-03] MEDS: CYCLOBENZAPRINE HCL 10 MG TABLET (FP) PO SCH ×3 (06:14→21:17)
[2018-02-03] MEDS: PRENATAL VITAMINS W/ FOLIC ACID TABLET (FP) PO SCH (09:46)
[2018-02-03] MEDS: PARoxetine HCL 10 MG TABLET (FP) PO SCH (09:46)
[2018-02-03] MEDS: BUPRENORPHINE/NALOXONE 8 MG/2 MG FILM PACKET SL SCH (09:46)
[2018-02-03] MEDS: NICOTINE 14 MG/24 HOURS TOPICAL PATCH TD SCH (09:47)
[2018-02-03] MEDS: THIAMINE HCL 100 MG TABLET (FP) PO SCH (21:18)
[2018-02-03] MEDS: MELATONIN 5 MG TABLETS PO PRN (21:18)
[2018-02-04] MEDS: CYCLOBENZAPRINE HCL 10 MG TABLET (FP) PO SCH ×3 (06:26→22:15)
[2018-02-04] MEDS: PARoxetine HCL 10 MG TABLET (FP) PO SCH (10:06)
[2018-02-04] MEDS: PRENATAL VITAMINS W/ FOLIC ACID TABLET (FP) PO SCH (10:06)
[2018-02-04] MEDS: BUPRENORPHINE/NALOXONE 8 MG/2 MG FILM PACKET SL SCH (10:06)
[2018-02-04] MEDS: NICOTINE 14 MG/24 HOURS TOPICAL PATCH TD SCH (10:07)
--- NOTE | 2018-02-04 13:41 | PN ---
Psychiatric Progress Note Vital Signs: Vital Signs Period Temp Pulse Resp BP Sys/Haley Pulse Ox Last 24 Hr 98 F 86 20-20 107/68 Date of Session: 02/04/18 Chief Complaint:: Discharge Note HPI: Patient addressing Alcohol and Opioid Dependence comorbid with Niciotine Dependence, MDD, recurrentepsode, Substance-Induced Mood Disorder and Substance- Induced Sleep Disorder Current Medications: Active Medications Generic Name Dose Route Start Last Admin Trade Name Freq PRN Reason Stop Dose Admin Acetaminophen 650 mg 01/09/18 18:07 Tylenol - PO Q4H PRN FEVER Al Hydroxide/Mg Hydroxide 30 ml 01/09/18 18:07 01/18/18 11:59 Mylanta Oral Suspension - PO 30 ml Q6H PRN Administration DYSPEPSIA Buprenorphine/Naloxone 1 each 02/04/18 10:00 02/04/18 10:06 Suboxone 8mg/2mg Sl Film - SL 02/11/18 09:59 1 each DAILY REGIS Administration Clonidine 0.1 mg 01/14/18 08:48 02/04/18 10:07 Catapres - PO 0.1 mg BID PRN Administration WITHDRAWAL(CONT SUBST) Colloidal Oatmeal 1 applic 02/02/18 10:42 Aveeno Soap - TP DAILY PRN HYGEINE Cyclobenzaprine HCl 10 mg 01/14/18 14:00 02/04/18 06:26 Flexeril - PO 10 mg TID REGIS Administration Eucalyptus/Menthol/Phenol/Sorbitol 1 each 01/09/18 18:07 Cepastat Lozenge - MM Q4H PRN SORE THROAT Guaifenesin 10 ml 01/09/18 18:07 Robitussin Dm - PO Q6H PRN COUGH Ibuprofen 400 mg 01/09/18 18:07 01/14/18 05:08 Motrin - PO 400 mg Q6H PRN Administration Pain Level 4-6 Loperamide HCl 4 mg 01/09/18 18:07 Imodium - PO Q6H PRN DIARRHEA Magnesium Citrate 300 ml 01/09/18 18:07 Citroma - PO Q48H PRN CONSTIPATION Magnesium Hydroxide 30 ml 01/09/18 18:07 Milk Of Magnesia - PO DAILY PRN CONSTIPATION Melatonin 5 mg 01/09/18 22:00 02/03/18 21:18 Melatonin PO 5 mg HS PRN Administration INSOMNIA Nicotine 14 mg 01/10/18 10:00 02/04/18 10:07 Nicoderm Patch - TD Not Given DAILY REGIS Paroxetine HCl 10 mg 01/10/18 10:00 02/04/18 10:06 Paxil - PO 10 mg DAILY REGIS Administration Multivit/Folic Acid/Iron 1 tab 01/10/18 10:00 02/04/18 10:06 Vitamins (Sjr) - PO 1 tab DAILY REGIS Administration Pseudoephedrine/Triprolidine 1 combo 01/09/18 18:07 Actifed - PO TID PRN NASAL CONGESTION Thiamine HCl 100 mg 01/09/18 22:00 02/03/18 21:18 Vitamin B1 - PO 100 mg HS REGIS Administration Current Side Effect: No Lab tests ordered: Yes Lab tests reviewed: Yes Provider note:: Patient will complete this program on 02/05/18. He has met his treatment goals and will continue to address his issues in outpatient treatment program at [facility] at [address] [place] [address]. He responded well to Paxil 10 mg po daily. Script for 30 days supply of that medication will be electronically transmitted to [facility] at [address] [place] [address]. He is stable for discharge on 02/05/18 Total face to face time:: 35 Mental Status Exam - Mental Status Exam Alert and Oriented to: Time, Place, Person Cognitive Function: Fair Patient Appearance: Well Groomed Mood: Hopeful, Euthymic Affect: Appropriate Patient Behavior: Cooperative Speech Pattern: Clear Voice Loudness: Normal Thought Process: Intact, Goal Oriented Thought Disorder: Not Present Hallucinations: Denies Suicidal Ideation: Denies Homicidal Ideation: Denies Insight/Judgement: Fair Sleep: Fair Appetite: Good Muscle strength/Tone: Normal Gait/Station: Normal Psychiatric Treatment Plan - Problem List (1) Alcohol dependence Current Visit: Yes (2) Opioid dependence Current Visit: Yes (3) Nicotine dependence Current Visit: Yes Qualifiers: (4) MDD (major depressive disorder), recurrent episode, moderate Current Visit: Yes (5) Substance induced mood disorder Current Visit: Yes (6) Substance-induced sleep disorder Current Visit: Yes (7) GERD without esophagitis Current Visit: Yes Initial treatment plan: Patient will be discharged tomorrow and referred to [facility] for outpatient program
[2018-02-04] MEDS: THIAMINE HCL 100 MG TABLET (FP) PO SCH (22:15)
[2018-02-05] MEDS: CYCLOBENZAPRINE HCL 10 MG TABLET (FP) PO SCH (06:15)
[2018-02-05 06:50] VITALS: BP 95/67; PULSE 100; TEMP 97.9
[2018-02-05] MEDS: BUPRENORPHINE/NALOXONE 8 MG/2 MG FILM PACKET SL SCH (09:00)
[2018-02-05] MEDS: PRENATAL VITAMINS W/ FOLIC ACID TABLET (FP) PO SCH (09:00)
[2018-02-05] MEDS: PARoxetine HCL 10 MG TABLET (FP) PO SCH (09:00)
[2018-02-05] MEDS: NICOTINE 14 MG/24 HOURS TOPICAL PATCH TD SCH (09:01)
--- NOTE | 2018-02-05 09:12 | PN ---
S Progress Note Note: PT COMPLETED REHAB AND SCHEDULED FOR D/C TODAY. ALERT O X 3. NAD. PT TO FOLLOW UP AT [facility] [address] FOR AFTERCARE. SUBOXONE 8 MG/2MG SL DAILY #7 SENT TO [facility] FOR BURR FILER. Vital Signs 02/05/18 02/05/18 03:30 06:49 Temperature 97.9 F Pulse Rate 100 H Respiratory 20 18 Rate Blood Pressure 95/67 PLAN:F/U FOR AFTERCARE AT [facility] F/U FOR SUBOXONE TREATMENT INTAKE ON FEBRUARY 08, 2018 WITH DAVID MCLAUGHLIN
== END 2018-02-05 09:15 | disposition home or self-care (01) | DRG 772 ==
LOC: YASAS 11:52 → Y3W 11:53
PROVIDERS: ADMIT Psychiatry & Neurology Psychiatry; ATTEND Psychiatry & Neurology Psychiatry
PROC: HZ42ZZZ Group Counseling for Substance Abuse Treatment, Cognitive-Behavioral (ICD-10-PCS; principal; 2018-01-09)
DX: F11.20 Opioid dependence, uncomplicated (principal); F10.20 Alcohol dependence, uncomplicated; F17.210 Nicotine dependence, cigarettes, uncomplicated; F33.1 Major depressive disorder, recurrent, moderate; F19.24 Other psychoactive substance dependence with psychoactive substance-induced mood disorder; F19.282 Other psychoactive substance dependence with psychoactive substance-induced sleep disorder; F41.8 Other specified anxiety disorders; K21.9 Gastro-esophageal reflux disease without esophagitis
CPT/HCPCS: 90688; G0008; J0735

== ENCOUNTER 2020-11-22 16:24 | Inpatient (IN) | payer OTHER ==
[2020-11-22] MEDS ORDERED: BISMUTH SUBSALICYLATE 524 MG/30 ML PO PRN (17:21)
[2020-11-22] MEDS ORDERED: MAG HYDROX/AL HYDROX/SIMETH 30 ML UNIT-DOSE CUP PO PRN (17:21)
[2020-11-22] MEDS ORDERED: MENTHOL/PHENOL 1 EACH UD MM PRN (17:21)
[2020-11-22] MEDS ORDERED: ONDANSETRON *ODT* 4 MG TABLET SL PRN (17:21)
[2020-11-22] MEDS ORDERED: MAGNESIUM HYDROX 2400MG/30ML ORAL SUSPENSION 30 ML CUP PO PRN (17:21)
[2020-11-22] MEDS ORDERED: NICOTINE 10 MG CARTRIDGE (INHALER) IH PRN (17:21)
[2020-11-22] MEDS ORDERED: ACETAMINOPHEN 325 MG TABLET (FP) PO PRN (17:21)
[2020-11-22] MEDS ORDERED: MAGNESIUM CITRATE 300 ML BOTTLE PO PRN (17:21)
[2020-11-22] MEDS ORDERED: diazePAM 5 MG TABLET PO PRN (17:25)
[2020-11-22] MEDS ORDERED: cloNIDine HCL 0.1 MG TABLET PO PRN (17:25)
[2020-11-22 17:39] VITALS: BMI 30.7
[2020-11-22] MEDS: METHOCARBAMOL 500 MG TABLET PO PRN (21:33)
[2020-11-22] MEDS: MELATONIN 5 MG TABLETS PO SCH (21:33)
[2020-11-22] MEDS: THIAMINE HCL 100 MG TABLET (FP) PO SCH (21:33)
[2020-11-23] MEDS ORDERED: clonazePAM 0.5 MG ODT TABLETS SL PRN (09:32)
[2020-11-23] MEDS ORDERED: cloNIDine HCL 0.1 MG TABLET PO PRN (09:32)
[2020-11-23] MEDS ORDERED: diazePAM 5 MG TABLET PO PRN (09:32)
[2020-11-23] MEDS ORDERED: methaDONE HCL 10 MG TABLET (FOR DETOX USE ONLY) PO ONE (10:00)
[2020-11-23] MEDS: PRENATAL VITAMINS W/ FOLIC ACID TABLET (FP) PO SCH (10:13)
[2020-11-23] MEDS: METHOCARBAMOL 500 MG TABLET PO PRN ×2 (10:14→22:48)
[2020-11-23] MEDS: ACETAMINOPHEN 325 MG TABLET (FP) PO PRN (10:14)
[2020-11-23] MEDS: diazePAM 5 MG TABLET PO SCH ×3 (10:15→22:46)
[2020-11-23 10:23] LABS: HEMATOCRIT 34.9 % (35.4-49); HEMOGLOBIN 11.7 GM/dL (11.7-16.9); MCH 31.7 pg (25.7-33.7); MCHC 33.6 g/dl (32.0-35.9); MEAN CELL VOLUME 94.3 fl (80-96); MEAN PLT VOLUME 9.1 fl (7.5-11.1); PLATELET COUNT 264 10^3/uL (134-434); RDW 14.1 % (11.9-15.9); WHITE BLOOD COUNT 10.3 K/mm3 (4.0-10.0)
[2020-11-23 10:27] LABS: ALBUMIN 3.3 g/dl (3.4-5.0); CALCIUM 8.4 mg/dL (8.5-10.1)
[2020-11-23 10:31] LABS: CREATININE 0.9 mg/dL (0.55-1.3)
[2020-11-23 10:32] LABS: BILIRUBIN,TOTAL 0.5 mg/dL (0.2-1); TOT PROT 6.3 g/dl (6.4-8.2)
[2020-11-23] MEDS: IBUPROFEN 400 MG TABLET (FP) PO PRN (20:04)
[2020-11-23] MEDS: MELATONIN 5 MG TABLETS PO SCH (22:46)
[2020-11-23] MEDS: THIAMINE HCL 100 MG TABLET (FP) PO SCH (22:46)
[2020-11-23] MEDS: hydrOXYzine PAMOATE 25 MG CAPSULE (FP) PO PRN (22:48)
[2020-11-24] MEDS: diazePAM 5 MG TABLET PO SCH ×4 (07:55→22:17)
[2020-11-24] MEDS ORDERED: methaDONE HCL 10 MG TABLET (FOR DETOX USE ONLY) ONE (09:14)
[2020-11-24] MEDS: PRENATAL VITAMINS W/ FOLIC ACID TABLET (FP) PO SCH (11:36)
[2020-11-24] MEDS: ACETAMINOPHEN 325 MG TABLET (FP) PO PRN (17:20)
[2020-11-24] MEDS: METHOCARBAMOL 500 MG TABLET PO PRN (17:20)
[2020-11-24] MEDS: MELATONIN 5 MG TABLETS PO SCH (22:16)
[2020-11-24] MEDS: THIAMINE HCL 100 MG TABLET (FP) PO SCH (22:16)
[2020-11-25] MEDS: METHOCARBAMOL 500 MG TABLET PO PRN (06:25)
[2020-11-25] MEDS: diazePAM 5 MG TABLET PO SCH ×3 (06:25→22:06)
[2020-11-25] MEDS ORDERED: methaDONE HCL 10 MG TABLET (FOR DETOX USE ONLY) PO ONE (10:00)
[2020-11-25] MEDS: PRENATAL VITAMINS W/ FOLIC ACID TABLET (FP) PO SCH (11:30)
[2020-11-25] MEDS: IBUPROFEN 400 MG TABLET (FP) PO PRN ×2 (14:52→22:07)
[2020-11-25] MEDS: MELATONIN 5 MG TABLETS PO SCH (22:05)
[2020-11-25] MEDS: THIAMINE HCL 100 MG TABLET (FP) PO SCH (22:05)
[2020-11-26] MEDS: diazePAM 5 MG TABLET PO SCH ×2 (06:08→18:12)
[2020-11-26] MEDS ORDERED: methaDONE HCL 10 MG TABLET (FOR DETOX USE ONLY) ONE (09:30)
[2020-11-26] MEDS: hydrOXYzine PAMOATE 25 MG CAPSULE (FP) PO PRN (10:27)
[2020-11-26] MEDS: METHOCARBAMOL 500 MG TABLET PO PRN ×2 (10:27→22:14)
[2020-11-26] MEDS: PRENATAL VITAMINS W/ FOLIC ACID TABLET (FP) PO SCH (10:27)
[2020-11-26] MEDS: IBUPROFEN 400 MG TABLET (FP) PO PRN (18:54)
[2020-11-26] MEDS: THIAMINE HCL 100 MG TABLET (FP) PO SCH (22:13)
[2020-11-26] MEDS: MELATONIN 5 MG TABLETS PO SCH (22:13)
[2020-11-27] MEDS ORDERED: diazePAM 5 MG TABLET PO ONE (06:00)
[2020-11-27] MEDS ORDERED: methaDONE HCL 10 MG TABLET (FOR DETOX USE ONLY) PO ONE (10:00)
[2020-11-27] MEDS: PRENATAL VITAMINS W/ FOLIC ACID TABLET (FP) PO SCH (10:27)
[2020-11-27] MEDS: hydrOXYzine PAMOATE 25 MG CAPSULE (FP) PO PRN (10:27)
[2020-11-27] MEDS: METHOCARBAMOL 500 MG TABLET PO PRN (22:17)
[2020-11-27] MEDS: MELATONIN 5 MG TABLETS PO SCH (22:17)
[2020-11-27] MEDS: THIAMINE HCL 100 MG TABLET (FP) PO SCH (22:17)
[2020-11-28] MEDS: METHOCARBAMOL 500 MG TABLET PO PRN (05:46)
[2020-11-28] MEDS: ACETAMINOPHEN 325 MG TABLET (FP) PO PRN (05:47)
[2020-11-28 09:30] VITALS: TEMP 96.8
[2020-11-28 10:36] VITALS: BP 115/68; PULSE 80
[2020-11-28] MEDS: PRENATAL VITAMINS W/ FOLIC ACID TABLET (FP) PO SCH (10:39)
== END 2020-11-28 12:45 | disposition other institution (70) | DRG 773 ==
LOC: YASAS 16:24 → Y6N 18:35 → UNDOADMIN 18:35 → Y3N 11-23 11:46
PROVIDERS: ADMIT Allergy & Immunology; ATTEND Allergy & Immunology
PROC: HZ2ZZZZ Detoxification Services for Substance Abuse Treatment (ICD-10-PCS; principal; 2020-11-22)
DX: F11.23 Opioid dependence with withdrawal (principal); F10.230 Alcohol dependence with withdrawal, uncomplicated; F17.210 Nicotine dependence, cigarettes, uncomplicated; F41.9 Anxiety disorder, unspecified; F32.9 Major depressive disorder, single episode, unspecified; M25.551 Pain in right hip; M25.522 Pain in left elbow; Z91.81 History of falling
CPT/HCPCS: 36415; 73552-TC-RT-FY; 80053; 85027; 86780; C9803; Q0162; U0003; U0005

== ENCOUNTER 2020-11-28 13:02 | Inpatient (IN) | payer OTHER ==
[2020-11-28] MEDS ORDERED: IBUPROFEN 400 MG TABLET (FP) PO PRN (14:42)
[2020-11-28] MEDS ORDERED: MENTHOL/PHENOL 1 EACH UD MM PRN (14:42)
[2020-11-28] MEDS ORDERED: ACETAMINOPHEN 325 MG TABLET (FP) PO PRN (14:42)
[2020-11-28] MEDS ORDERED: NICOTINE POLACRILEX 2 MG GUM BUC PRN (14:42)
[2020-11-28] MEDS ORDERED: P-EPHED 60MG/TRIPROLIDI 2.5MG TABLET PO PRN (14:42)
[2020-11-28] MEDS ORDERED: LOPERAMIDE HCL 2 MG CAPSULE PO PRN (14:42)
[2020-11-28] MEDS ORDERED: MAG HYDROX/AL HYDROX/SIMETH 30 ML UNIT-DOSE CUP PO PRN (14:42)
[2020-11-28] MEDS ORDERED: MAGNESIUM CITRATE 300 ML BOTTLE PO PRN (14:42)
[2020-11-28] MEDS ORDERED: MAGNESIUM HYDROX 2400MG/30ML ORAL SUSPENSION 30 ML CUP PO PRN (14:42)
[2020-11-28] MEDS ORDERED: guaiFENesin 200 MG/10 ML 10 ML UNIT-DOSE CUPS PO PRN (14:42)
[2020-11-28] MEDS: METHOCARBAMOL 500 MG TABLET PO SCH ×2 (18:00→21:11)
[2020-11-28] MEDS: MELATONIN 5 MG TABLETS PO SCH (21:12)
[2020-11-28] MEDS: THIAMINE HCL 100 MG TABLET (FP) PO SCH (21:12)
[2020-11-29] MEDS: PRENATAL VITAMINS W/ FOLIC ACID TABLET (FP) PO SCH (09:40)
[2020-11-29] MEDS: METHOCARBAMOL 500 MG TABLET PO SCH ×4 (09:40→21:10)
[2020-11-29] MEDS: hydrOXYzine PAMOATE 25 MG CAPSULE (FP) PO PRN (09:41)
[2020-11-29] MEDS: NICOTINE 10 MG CARTRIDGE (INHALER) IH PRN (09:41)
[2020-11-29] MEDS: MELATONIN 5 MG TABLETS PO SCH (21:09)
[2020-11-29] MEDS: THIAMINE HCL 100 MG TABLET (FP) PO SCH (21:10)
[2020-11-30 07:09] VITALS: TEMP 96.8
[2020-11-30] MEDS: hydrOXYzine PAMOATE 25 MG CAPSULE (FP) PO PRN (10:07)
[2020-11-30] MEDS: METHOCARBAMOL 500 MG TABLET PO SCH ×4 (10:07→21:11)
[2020-11-30] MEDS: PRENATAL VITAMINS W/ FOLIC ACID TABLET (FP) PO SCH (10:07)
[2020-11-30] MEDS: MELATONIN 5 MG TABLETS PO SCH (21:11)
[2020-11-30] MEDS: THIAMINE HCL 100 MG TABLET (FP) PO SCH (21:11)
[2020-11-30] MEDS: NICOTINE 10 MG CARTRIDGE (INHALER) IH PRN (21:11)
[2020-12-01] MEDS: PRENATAL VITAMINS W/ FOLIC ACID TABLET (FP) PO SCH (09:47)
[2020-12-01] MEDS: METHOCARBAMOL 500 MG TABLET PO SCH ×4 (09:48→21:53)
[2020-12-01] MEDS: hydrOXYzine PAMOATE 25 MG CAPSULE (FP) PO PRN (15:45)
[2020-12-01] MEDS: NICOTINE 10 MG CARTRIDGE (INHALER) IH PRN (15:45)
[2020-12-01] MEDS: MELATONIN 5 MG TABLETS PO SCH (21:53)
[2020-12-01] MEDS: THIAMINE HCL 100 MG TABLET (FP) PO SCH (21:53)
[2020-12-02] MEDS: PRENATAL VITAMINS W/ FOLIC ACID TABLET (FP) PO SCH (10:05)
[2020-12-02] MEDS: METHOCARBAMOL 500 MG TABLET PO SCH ×4 (10:06→21:14)
[2020-12-02] MEDS: NICOTINE 10 MG CARTRIDGE (INHALER) IH PRN ×2 (10:06→18:43)
[2020-12-02] MEDS: MELATONIN 5 MG TABLETS PO SCH (21:14)
[2020-12-02] MEDS: THIAMINE HCL 100 MG TABLET (FP) PO SCH (21:14)
[2020-12-03] MEDS: METHOCARBAMOL 500 MG TABLET PO SCH ×4 (10:20→21:23)
[2020-12-03] MEDS: PRENATAL VITAMINS W/ FOLIC ACID TABLET (FP) PO SCH (10:20)
[2020-12-03] MEDS: NICOTINE 10 MG CARTRIDGE (INHALER) IH PRN (11:22)
[2020-12-03] MEDS: THIAMINE HCL 100 MG TABLET (FP) PO SCH (21:23)
[2020-12-03] MEDS: MELATONIN 5 MG TABLETS PO SCH (21:23)
[2020-12-03] MEDS: hydrOXYzine PAMOATE 25 MG CAPSULE (FP) PO PRN (21:24)
[2020-12-04] MEDS: hydrOXYzine PAMOATE 25 MG CAPSULE (FP) PO PRN (10:30)
[2020-12-04] MEDS: PRENATAL VITAMINS W/ FOLIC ACID TABLET (FP) PO SCH (10:30)
[2020-12-04] MEDS: METHOCARBAMOL 500 MG TABLET PO SCH (10:30)
[2020-12-04 10:49] VITALS: BP 111/72; PULSE 71
== END 2020-12-04 12:15 | disposition home or self-care (01) | DRG 772 ==
LOC: YASAS 13:02 → Y3W 13:06
PROVIDERS: ADMIT Allergy & Immunology; ATTEND Allergy & Immunology
PROC: HZ42ZZZ Group Counseling for Substance Abuse Treatment, Cognitive-Behavioral (ICD-10-PCS; principal; 2020-11-28)
DX: F11.20 Opioid dependence, uncomplicated (principal); F10.20 Alcohol dependence, uncomplicated